=== PATIENT | male | born 1930 | race Caucasian/White ===

== ENCOUNTER → 2020-03-19 | Outpatient (CLI) | payer OTHER, MEDICARE ==
[~2020-03-19] MED LIST: ACETAMINOPHEN325 M1 PO; ALLOPURINOL 10100 M1 PO; ALLOPURINOL 30300 M1 PO; ALLOPURINOL 30300 M3; AMOXICILLIN875 MG PO; ASPIRIN81 M2 PO; ATORVASTATIN CA40 MG PO; BP MED; CHOLESTEROL MED; COZAAR 50 MG TA50 M1 PO; DEXILANT60 MG PO; GLUCOPHAGE500 MG; GLUCOPHAGE500 MG PO; GOUT MED; LOPRESSOR 50 MG50 M1; LOVASTAT40 PO; LOVASTATIN 20 M20 MG PO; METFORMIN HCL500 MG PO; PAXIL10 MG; PLAVIX 75 MG TA75 M1 PO; SERTRALINE HCL25 M1 PO; SERTRALINE HCL50 MG PO; TOPROL XL25 MG PO; TOPROL XL50 MG PO; ZOLOFT100 MG PO; ZOLOFT25 MG
== END ==
LOC: SJCVCIMAG 02-05 08:26
PROVIDERS: ATTEND Internal Medicine Cardiovascular Disease
DX: I08.1 Rheumatic disorders of both mitral and tricuspid valves (principal); I11.9 Hypertensive heart disease without heart failure; I49.3 Ventricular premature depolarization; R00.0 Tachycardia, unspecified; I25.10 Atherosclerotic heart disease of native coronary artery without angina pectoris; E78.00 Pure hypercholesterolemia, unspecified; F32.9 Major depressive disorder, single episode, unspecified; Z79.899 Other long term (current) drug therapy; Z87.891 Personal history of nicotine dependence

== ENCOUNTER → 2020-03-21 | Outpatient (CLI) | payer OTHER, MEDICARE | LOC: LAB 12:36 | PROVIDERS: ATTEND Internal Medicine Cardiovascular Disease | DX: Z01.818 Encounter for other preprocedural examination (principal); Z11.59 Encounter for screening for other viral diseases ==

== ENCOUNTER → 2020-09-05 | Outpatient (CLI) | payer OTHER, MEDICARE | LOC: SJCVC 10:29 | PROVIDERS: ATTEND Internal Medicine Cardiovascular Disease | DX: R94.31 Abnormal electrocardiogram [ECG] [EKG] (principal); R00.0 Tachycardia, unspecified; I25.10 Atherosclerotic heart disease of native coronary artery without angina pectoris; I11.0 Hypertensive heart disease with heart failure; E78.00 Pure hypercholesterolemia, unspecified; E11.9 Type 2 diabetes mellitus without complications; I65.23 Occlusion and stenosis of bilateral carotid arteries; E78.5 Hyperlipidemia, unspecified; Z87.891 Personal history of nicotine dependence; Z72.89 Other problems related to lifestyle; Z88.0 Allergy status to penicillin; Z79.899 Other long term (current) drug therapy ==

== ENCOUNTER → 2020-09-10 | Outpatient (CLI) | payer OTHER, MEDICARE | LOC: LAB 13:31 | PROVIDERS: ATTEND Internal Medicine Cardiovascular Disease | DX: Z20.828 Contact with and (suspected) exposure to other viral communicable diseases (principal) ==

== ENCOUNTER → 2021-01-01 | Outpatient (CLI) | payer OTHER, MEDICARE | LOC: SJCVC 10:04 | PROVIDERS: ATTEND Internal Medicine Cardiovascular Disease | DX: I25.10 Atherosclerotic heart disease of native coronary artery without angina pectoris (principal); I10 Essential (primary) hypertension; E78.00 Pure hypercholesterolemia, unspecified; R53.83 Other fatigue; E11.9 Type 2 diabetes mellitus without complications; I65.23 Occlusion and stenosis of bilateral carotid arteries; Z87.891 Personal history of nicotine dependence; Z72.89 Other problems related to lifestyle; Z79.82 Long term (current) use of aspirin; Z79.899 Other long term (current) drug therapy; Z88.0 Allergy status to penicillin; E78.5 Hyperlipidemia, unspecified; Z95.5 Presence of coronary angioplasty implant and graft; Z95.828 Presence of other vascular implants and grafts ==